=== PATIENT | male | born 1995 ===

== ENCOUNTER 2017-12-29 10:22 | Emergency (ER) | payer SELFPAY ==
[2017-12-29 10:33] VITALS: TEMP 97.9
[2017-12-29] MEDS ORDERED: Sodium Chloride 0.9% 1,000 ML IV STA (10:40)
[2017-12-29 11:03] LABS: ALB/GLOB RATIO 1.3 (1.1-1.8); ALBUMIN 4.6 g/dL (3.0-4.8); ALT/SGPT 37 U/L (7-56); AST/SGOT 30 U/L (17-59); BLOOD UREA NITROGEN 8 mg/dL (7-21); CALCIUM 9.7 mg/dL (8.4-10.5); GFR NON-AFRICAN AMERICAN > 60; LIPASE 72 U/L (23-300)
[2017-12-29] MEDS ORDERED: Morphine 2 mg/ml ISec IVP STA (11:14)
[2017-12-29 11:21] LABS: BASO # 0.05 K/mm3 (0.0-2.0); BASO % 0.5 % (0.0-3.0); EOS # 0.1 (0.0-0.7); EOS % 1.4 % (1.5-5.0); GRAN # 4.98 (1.4-6.5); GRAN % 54.2 % (50.0-68.0); HEMOGLOBIN 15.7 g/dL (14.0-18.0); LYMPH # 3.3 (1.2-3.4); LYMPH % 36.3 % (22.0-35.0); MEAN CORPUSCULAR HEMOGLOBIN 27.6 pg (25.0-35.0); MEAN CORPUSCULAR HGB CONC 33.7 g/dl (31.0-37.0); MEAN PLATELET VOLUME 10.4 fl (7.0-11.0); MONO # 0.7 (0.1-0.6); MONO % 7.6 % (1.0-6.0); RBC 5.68 10^6/uL (3.5-6.1); RED CELL DISTRIBUTION WIDTH 14.3 % (11.5-14.5); WHITE BLOOD COUNT 9.2 10^3/uL (4.5-11.0)
[2017-12-29] MEDS ORDERED: Iohexol 350 MG/100 ML VIAL ONE (11:43)
--- NOTE | 2017-12-29 11:45 | ED PDOC ---
Arrival/HPI - General Chief Complaint: Abdominal Pain Historian: Patient - History of Present Illness Narrative History of Present Illness (Text): 12/29/17 11:42 22yo male with no pmhx who present with complaint of constant sharp RLQ abdominal pain with associated nausea, nonbloody/bilious vomiting x 1 and diarrhea x2 since this morning. Denies previous history. Denies fever, chills, sick contact, travel, hematemesis, hematochezia, hematuria, urinary symptoms, any other complaint. Past Medical History - Provider Review Nursing Documentation Reviewed: Yes - Psychiatric Hx Substance Use: Yes (Marijuana) Family/Social History - Physician Review Nursing Documentation Reviewed: Yes Family/Social History: Unknown Family HX Smoking Status: Never Smoked Hx Alcohol Use: No Hx Substance Use: Yes (Marijuana) Allergies/Home Meds Allergies/Adverse Reactions: Allergies No Known Allergies Allergy (Verified 12/29/17 10:34) Review of Systems - Physician Review All systems were reviewed & negative as marked: Yes - Review of Systems Constitutional: Normal Eyes: Normal ENT: Normal Respiratory: Normal Cardiovascular: Normal Gastrointestinal: Abdominal Pain, Diarrhea, Nausea, Vomiting. absent: Constipation, Hematochezia, Hematemesis Genitourinary Male: Normal Musculoskeletal: Normal Skin: Normal Neurological: Normal Endocrine: Normal Hemo/Lymphatic: Normal Psychiatric: Normal Physical Exam Vital Signs Reviewed: Yes Vital Signs Temp Pulse Resp BP Pulse Ox 12/29/17 10:32 97.9 F 67 18 111/68 100 Temperature: Afebrile Blood Pressure: Normal Pulse: Regular Respiratory Rate: Normal Appearance: Positive for: Well-Appearing, Non-Toxic, Comfortable Pain Distress: Moderate Mental Status: Positive for: Alert and Oriented X 3 - Systems Exam Head: Present: Atraumatic, Normocephalic Pupils: Present: PERRL Extroacular Muscles: Present: EOMI Conjunctiva: Present: Normal Mouth: Present: Moist Mucous Membranes Neck: Present: Normal Range of Motion Respiratory/Chest: Present: Clear to Auscultation, Good Air Exchange. No: Respiratory Distress, Accessory Muscle Use Cardiovascular: Present: Regular Rate and Rhythm, Normal S1, S2. No: Murmurs Abdomen: Present: Tenderness (RLQ), Normal Bowel Sounds, Guarding (Voluntary), Other (soft). No: Distention, Peritoneal Signs, Rebound, McBurney's Point Tender, Rovsing's Sign Present Back: Present: Normal Inspection Upper Extremity: Present: Normal Inspection. No: Cyanosis, Edema Lower Extremity: Present: Normal Inspection. No: Edema Neurological: Present: GCS=15, CN II-XII Intact, Speech Normal Skin: Present: Warm, Dry, Normal Color. No: Rashes Psychiatric: Present: Alert, Oriented x 3, Normal Insight, Normal Concentration Medical Decision Making ED Course and Treatment: 12/29/17 19:14 PT present to ED for stated history. He was in moderate pain on presentation and his pain improved in ED with medication. Labs Abdominal/Pelvic CT 1L NS, Pepcid, Zofran, Morphine Pt's lab was unremarkable with exception of the noted elevated aPTT Abdominal/Pelvic CT ADDENDUM: Please note dictation error in the impression. The prostate gland appears low in attenuation and enlarged. Appearance worrisome for prostatitis, not proctitis. Correlate clinically. BAse on the CT finding Chlamydia/gono culture was added. PT denies any STD symptom. He was started on Bactrim DS Secondary to the CT finding and elevated aPTT pt was offered admission for further evaluation. He however declined admission. States he will rather follow up with a Doctor in his school when he goes back to school on Sunday for outpt workup. He was strongly advised to f/u with a Urologist and PMD. Copy of his CT report and lab result was given to the pt. He verbalized understanding of the given instructions. - Lab Interpretations Lab Results: 12/29/17 10:30 12/29/17 10:30 Lab Results 12/29/17 10:30: Sodium 140, Potassium 4.4, Chloride 106, Carbon Dioxide 25, Anion Gap 14, BUN 8, Creatinine 0.9, Est GFR ( Amer) > 60, Est GFR (Non- Af Amer) > 60, Random Glucose 131 H, Calcium 9.7, Magnesium 2.0, Total Bilirubin 1.0, AST 30, ALT 37, Alkaline Phosphatase 74, Total Protein 8.2, Albumin 4.6, Globulin 3.6, Albumin/Globulin Ratio 1.3, Lipase 72 12/29/17 10:30: WBC 9.2, RBC 5.68, Hgb 15.7, Hct 46.6, MCV 82.0, MCH 27.6, MCHC 33.7, RDW 14.3, Plt Count 217, MPV 10.4, Gran % 54.2, Lymph % (Auto) 36.3 H, [place] % (Auto) 7.6 H, Eos % (Auto) 1.4 L, Baso % (Auto) 0.5, Gran # 4.98, Lymph # (Auto) 3.3, [place] # (Auto) 0.7 H, Eos # (Auto) 0.1, Baso # (Auto) 0.05 - RAD Interpretation Radiology Orders: 12/29/17 10:41 ABD & PELVIS IV CONTRAST ONLY [CT] Stat - Medication Orders Current Medication Orders: Discontinued Medications Famotidine (Pepcid) 20 mg IVP STAT STA Stop: 12/29/17 10:41 Last Admin: 12/29/17 10:49 Dose: 20 mg IVP Administration Document 12/29/17 10:49 JAVAD (Rec: 12/29/17 10:49 [facility] Charges for Administration # of IVP Administrations 1 Sodium Chloride (Sodium Chloride 0.9%) 1,000 mls @ 1,000 mls/hr IV .Q1H STA Stop: 12/29/17 11:39 Last Admin: 12/29/17 10:45 Dose: 1,000 mls/hr eMAR Start Stop Document 12/29/17 10:45 JAVAD (Rec: 12/29/17 10:45 JAVAD [place] [id number]) Intravenous Solution Start Date 12/29/17 Start Time 10:45 End Date 12/29/17 End time 11:45 Total Infusion Time 60 Morphine Sulfate (Morphine) 2 mg IVP STAT STA Stop: 12/29/17 11:15 Last Admin: 12/29/17 11:24 Dose: 2 mg MAR Pain Assessment Document 12/29/17 11:24 JAVAD (Rec: 12/29/17 11:25 [facility] [place] [place] Pain Reassessment Is this a pain reassessment? Yes Presence of Pain Presence of Pain Yes Pain Scale Used Protocol: PSCALES Pain Scale Used Numeric Location Left, Right or Bilateral Right Upper or Lower Lower Pain Location Body Site Abdomen Description Description Sharp Intensity of Pain at present 7 IVP Administration Document 12/29/17 11:24 JAVAD (Rec: 12/29/17 11:25 [facility] [place] [place] Charges for Administration # of IVP Administrations 1 Ondansetron HCl (Zofran Inj) 4 mg IVP STAT STA Stop: 12/29/17 10:41 Last Admin: 12/29/17 10:49 Dose: 4 mg IVP Administration Document 12/29/17 10:49 JAVAD (Rec: 12/29/17 10:49 JAVAD [facility] [place] Charges for Administration # of IVP Administrations 1 Disposition/Present on Arrival - Present on Arrival Any Indicators Present on Arrival: No History of DVT/PE: No History of Uncontrolled Diabetes: No Urinary Catheter: No History of Decub. Ulcer: No History Surgical Site Infection Following: None - Disposition Have Diagnosis and Disposition been Completed?: Yes Diagnosis: Hydronephrosis, Abdominal pain, Prostatitis Disposition: HOME/ ROUTINE Disposition Time: 14:15 Patient Plan: Discharge Condition: STABLE Discharge Instructions (ExitCare): Hydronephrosis in Adults, Acute Abdomen (Belly Pain), Adult (DC) Additional Instructions: Follow up with your Doctor/clinic Return to ED for any new symptoms Prescriptions: RX: Ibuprofen [Motrin Tab] 400 mg PO Q6 #15 tab Ondansetron ODT [Zofran ODT] 4 mg PO Q6 #7 odt Sulfamethoxazole/Trimethoprim [Bactrim DS 800 mg-160 mg] 1 tab PO BID #14 tab Referrals: Loraine Austin MD [Medical Doctor] - Follow up with primary Hao Montez MD [Staff Provider] - Follow up with primary Donald Madison MD [Staff Provider] - Follow up with primary Forms: [employer] (Chinese)
[2017-12-29 12:48] LABS: INR 1.08; PROTHROMBIN TIME 12.4 SECONDS (9.4-12.5)
[2017-12-29 12:52] VITALS: PULSE 72; O2SAT 99
--- NOTE | 2017-12-29 14:12 | CT ---
Date of service: 12/29/2017 PROCEDURE: CT Abdomen and Pelvis with contrast HISTORY: RLQ pain COMPARISON: None available. TECHNIQUE: Contrast dose: 210.69 Radiation dose: Total exam DLP = 210.69 mGy-cm. This CT exam was performed using one or more of the following dose reduction techniques: Automated exposure control, adjustment of the mA and/or kV according to patient size, and/or use of iterative reconstruction technique. FINDINGS: LOWER THORAX: No visible consolidation, pleural effusion, or pneumothorax. LIVER: Unremarkable. GALLBLADDER AND BILE DUCTS: Unremarkable. PANCREAS: Unremarkable. SPLEEN: Unremarkable. ADRENALS: Unremarkable. KIDNEYS AND URETERS: Delayed right nephrogram. Mild right-sided hydronephrosis and hydroureter. Delayed views were obtained without evidence of obstructing calculus/obstructive uropathy. No left-sided hydronephrosis or obstructing calculus identified. VASCULATURE: No aortic aneurysm. No atherosclerotic calcification or mural plaque present. BOWEL: Stomach is nondistended. Lack of oral contrast limits evaluation for bowel pathology. Bowel loops appear within normal limits of caliber without evidence of obstruction. APPENDIX: The appendix is not identified definitively. No secondary signs of acute appendicitis. PERITONEUM: No significant free fluid. No definite free air. LYMPH NODES: No bulky adenopathy identified. BLADDER: Unremarkable. REPRODUCTIVE: Prostate gland appears low in attenuation and enlarged measuring approximately 3.8 x 5.0 x 5.1 cm, 51.4 cc. BONES: No acute osseous abnormality is detected. OTHER FINDINGS: None. IMPRESSION: Delayed right nephrogram. Mild right-sided hydronephrosis and hydroureter. Delayed views were obtained without evidence of obstructing calculus/obstructive uropathy. Finding suspected secondary to intrinsic renal dysfunction. Recommend follow-up as indicated. The prostate gland appears low in attenuation and enlarged. Appearance worrisome for proctitis. Correlate clinically. Additional findings as above.
[2017-12-29] MEDS ORDERED: Tmp-Smz 800 mg-160 mg DS Tab PO STA (14:27)
[2017-12-29 14:38] LABS: PARTIAL THROMBOPLASTIN TIME 104.8 Seconds (25.1-36.5)
[2017-12-29 15:28] VITALS: BP 112/63; RESP 16
== END 2017-12-29 15:27 | disposition home or self-care (01) ==
LOC: ED 10:22
DX: N13.30 Unspecified hydronephrosis (principal); N41.9 Inflammatory disease of prostate, unspecified
CPT/HCPCS: 74177; 80053; 83690; 83735; 85025; 85610; 85730; 96361; 96374; 96375; 96376; 99283; J2270; J2405; J7030; Q9967